=== PATIENT | female | born 1990 | race Caucasian/White ===

== ENCOUNTER → 2020-04-03 | Outpatient (CLI) | payer BC, SELFPAY ==
[~2020-04-03] MED LIST: FLUO40CA PO; TEST200I14 INJ
== END ==
LOC: M LABSMTC 11:09
PROVIDERS: ATTEND Anesthesiology
DX: Z01.812 Encounter for preprocedural laboratory examination (principal); Z20.822 Contact with and (suspected) exposure to COVID-19

== ENCOUNTER 2020-04-08 09:47 | Day surgery (SDC) | payer OTHER ==
[~2020-04-08] VITALS: Ht 180.3 cm; Wt 118.8 kg
[~2020-04-08 09:47] MED LIST changes: +HEPARIN SOD (PORCINE) 5000UNITS/ML 1ML VIAL/SYRINGE SQ ONE; +LIDOCAINE 1% MDV 20ML VIAL SQ PRN; +LR 1,000 ML IV ONE; +ceFAZolin SOD 2 GM in IV 1 EA IV ONE
[2020-04-08] MEDS ORDERED: LIDOCAINE 2% 100MG/5ML SDV (FOR ANES.) As Ordered ONE (12:28)
[2020-04-08] MEDS ORDERED: ROCURONIUM BROMIDE 50 MG/5 ML VIAL As Ordered ONE ×2 (12:28→14:20)
[2020-04-08] MEDS ORDERED: ONDANSETRON 4MG/2ML VIAL As Ordered ONE (12:28)
[2020-04-08] MEDS ORDERED: dexameTHASONE 4 MG/ML 1ML VIAL (J1100 PER 1MG) As Ordered ONE (12:28)
[2020-04-08] MEDS ORDERED: propofoL 200 MG/20 ML VIAL As Ordered ONE (12:28)
[2020-04-08] MEDS ORDERED: MIDAZOLAM INJ 2MG/2ML VIAL (J2250 PER 1MG) As Ordered ONE (12:29)
[2020-04-08] MEDS ORDERED: fentaNYL 250 MCG/5 ML INJECTION (J3010) As Ordered ONE (12:29)
[2020-04-08] MEDS ORDERED: BUPIVACAINE LIPOSOME/PF 1.3% 20ML VIAL (13.3MG/ML)(EXPAREL)(C9290 PER1MG) As Ordered ONE (13:15)
[2020-04-08] MEDS ORDERED: BACITRACIN PWD 50,000 UNITS VIAL As Ordered ONE (13:15)
[2020-04-08] MEDS ORDERED: LACRILUBE (AKWA TEARS) OPHTH OINT 3.5 GM As Ordered ONE (13:19)
[2020-04-08] MEDS ORDERED: EPINEPHrine INJ 1 MG/ML 1ML AMP As Ordered ONE (13:55)
[2020-04-08] MEDS ORDERED: LIDOCAINE 1% MDV 20ML VIAL As Ordered ONE (13:55)
[2020-04-08] MEDS ORDERED: SUGAMMADEX SODIUM 500 MG/5 ML VIAL (BRIDION) As Ordered ONE (14:49)
[2020-04-08] MEDS ORDERED: HYDROmorphone HCL 2 MG/ML 1ML VIAL (J1170) As Ordered ONE (14:49)
[2020-04-08] MEDS ORDERED: PERCOCET 5MG/325MG TAB PO PRN (17:00)
[2020-04-08] MEDS ORDERED: ONDANSETRON 4MG/2ML VIAL IV PRN ×2 (17:00→18:00)
[2020-04-08] MEDS ORDERED: ACETAMINOPHEN TAB 650MG DOSE (2X325MG) PO PRN (17:00)
--- NOTE | 2020-04-08 17:00 | POST-OPPD ---
Postoperative Procedure Note Date Of Procedure: Apr 08, 2020 PREOPERATIVE DIAGNOSIS: Gender dysphoria, bilateral breast hypertrophy. POSTOPERATIVE DIAGNOSIS: same FINDINGS: Female chest distribution. PROCEDURE: Chest masculinization procedure, bilateral subcutaneous mastectomies with free nipple graft. SURGEON: Dr Quan ANESTHESIA: General SPECIMENS: Right breast 1310gm, Left breast 1325 gm ESTIMATED BLOOD LOSS: 100 gm REPLACED: none DRAINS: 10 mm ABDULAZIZ flat COMPLICATIONS: none POSTOPERATIVE CONDITION: stable BLAIR QUAN DO Apr 08, 2020 17:00
[2020-04-08] MEDS ORDERED: oxyCODONE 5MG TAB As Ordered ONE (17:50)
[2020-04-08] MEDS ORDERED: LR 1,000 ML IV SCH (18:00)
[2020-04-08] MEDS ORDERED: METOCLOPRAMIDE INJ 10MG/2ML VIAL (J2765 PER 1) IV PRN (18:00)
[2020-04-08] MEDS ORDERED: fentaNYL 100 MCG/2 ML INJECTION (J3010) IV PRN (18:00)
[2020-04-08] MEDS ORDERED: HYDROMORPHONE HCL 0.5 MG/ 0.5 ML SYRINGE (J1170 PER 1) IV PRN (18:00)
[2020-04-08] MEDS ORDERED: oxyCODONE 5MG TAB PO PRN (18:00)
--- NOTE | 2020-04-08 18:06 | ROOPDOC ---
[facility] Report Of Operation Report of Operation Date Of Procedure: Apr 08, 2020 PREOPERATIVE DIAGNOSIS: Gender dysphoria, bilateral breast hypertrophy. POSTOPERATIVE DIAGNOSIS: same FINDINGS: Female chest distribution. PROCEDURE: Chest masculinization procedure, bilateral subcutaneous mastectomies with free nipple graft. SURGEON: Dr Valentino ANESTHESIA: General SPECIMENS: Right breast 1310gm, Left breast 1325 gm ESTIMATED BLOOD LOSS: 100 gm REPLACED: none DRAINS: 10 mm ABDULAZIZ flat COMPLICATIONS: none POSTOPERATIVE CONDITION: stable DESCRIPTION OF PROCEDURE: This is a 29-year-old transgender male who willing to have chest masculinization procedure. Patient fits the criteria for the proce dure. She has stopped testosterone March 09. Risks, benefits, and alternatives were discussed with the patient in detail, and he is ready to proceed. The day of surgery, he was marked in the upright position and informed consent was obtained. He measured 30 cm from sternal notch to nipple on both sides, IMF at 23 cm bilaterally. Patient was marked according to double incision fountain bcutaneous mastectomy. He was brought into the operating room and placed in the supine position. Preoperative antibiotics and 5000 units heparin subcutaneous were given. Sequential pneumatic stocking were placed on the lower calves. General anesthesia was induced. He was prepped and draped in the usual sterile fashion. We started our procedure on the right side. Nipple areolar complex was outlined 20 mm in diameter. Superior incision carried out followed by the inframammary incision. Started undermining the flap with thick edges from the superior incision toward the midportion of the pectoralis major then the breast was removed starting from top to the inferior incision at the inframammary line along the pectoralis fascia. Total weight on the right side is 1310 grams. Hemostasis was obtained using electrocautery. We used Exparel 6 cc for local anesthesia to infiltrate in the Pectoralis muscle. Started closing the flap with interrupted 0 Vicryl sutures. 10 mm Santos-Valdez drain was placed through the separate stab incision. Then we turn our attention to the left side. Nipple areolar complex was outlined 20 mm in diameter. Superior incision carried out followed by the inframammary incision. Started undermining the flap with thick edges from the superior incision toward the midportion of the pectoralis major then the breast was removed starting from top to the inferior incision at the inframammary line along the pectoralis fascia. Total weight on the right side is 1325 grams. Hemostasis was obtained using electrocautery. We used Exparel 6 cc for local anesthesia to infiltrate in the Pectoralis muscle. Started closing the flap with interrupted 0 Vicryl sutures. 10 mm Santos-Valdez drain was placed through the separate stab incision. Tumescent solution was infiltrated on the lateral chest bilaterally totaling 200 on each side, then the VASER liposuction was performed 2 minutes on each side followed by regular light suction to remove the rest of the fatty tissue. Total liposuction 400 mL. 50 mL of tumescent solution infiltrated middle of the chest and suction assisted lipectomy performed to smooth out the contour. Than the continued our closure of inframammary incisions with interrupted 3-0 Monocryl sutures followed by 3-0 Monocryl V lock suture. Breast tissue removed was stored on the sterile table. At this point we harvested the nipple areolar complex from each breast. Tissue was defatted and transferred to a chest as a free graft. Location of the nipple is 2 cm from inframammary line. Nipple areolar complex graft was secured in place with interrupted 4-0 and 5-0 chromic sutures. Bolster dressing was applied and secured in place with 4-0 nylon sutures. Remaining Exparel injected in the horizontal incision. Total Exparel use 20 cc. Resected tissue sent to pathology in two specimens right and left breast tissue. Dressings were applied to vertical and horizontal incision: Prineo, bulky dressing and binder. Patient was extubated in the operating room without difficulty and was transferred to the recovery room in stable condition. BLAIR VALENTINO DO Apr 08, 2020 18:06
[2020-04-08 18:30] VITALS: BP 129/78
[2020-04-08] MEDS: LR 1,000 ML IV SCH (18:35)
[2020-04-08 19:00] VITALS: BP 112/56
[2020-04-08] MEDS: ceFAZolin SOD 1 GM in D5W MINI-BAG PLUS 50 ML IV SCH (21:06)
[2020-04-08] MEDS: KETOROLAC TROMETHAMINE 10 MG TAB PO PRN (21:06)
[2020-04-08 22:00] VITALS: BP 135/72
[2020-04-09] MEDS: LR 1,000 ML IV SCH (02:39)
[2020-04-09] MEDS: ceFAZolin SOD 1 GM in D5W MINI-BAG PLUS 50 ML IV SCH (05:00)
[2020-04-09 06:00] VITALS: BP 132/71
[2020-04-09] MEDS: KETOROLAC TROMETHAMINE 10 MG TAB PO PRN (07:30)
--- NOTE | 2020-04-09 11:29 | IPNPDOC ---
Subjective General Date Seen: Apr 09, 2020 Subject Chief Complaint/History The patient is a 29-year-old female admitted with a reason for visit of Gender Identity Disorder, Breast Hypertrophy. Patient status post chest with skeletonization procedure postop day 1. Feeling well, pain controlled, tolerating regular diet, ambulating himself. Denies dizziness, shortness of breath, chest pain, headache. Current Medications Current Medications Current Medications Medications (Trade) Dose Ordered Sig/Simon Route PRN Reason Start Time Stop Time Status Last Admin Dose Admin Acetaminophen (Tylenol Tab) 650 mg Q6H PRN PO MILD PAIN (PS 1-4) 04/08/20 17:00 04/09/20 02:39 Cefazolin Sodium 1 gm/Dextrose 50 ml @ 100 mls/hr Q8H IV 04/08/20 22:00 04/09/20 05:00 Fentanyl Citrate (Sublimaze) 25 mcg Q5MP PRN IV PAIN LEVEL 5-10 04/08/20 18:00 04/08/20 19:00 DC Hydromorphone HCl (Dilaudid) 0.4 mg Q5MP PRN IV PAIN LEVEL 4-7 04/08/20 18:00 04/08/20 19:00 DC Ketorolac Tromethamine (ToRADol) 10 mg Q6HP PRN PO MODERATE PAIN (PS 5-7) 04/08/20 17:00 04/13/20 16:59 04/09/20 07:30 Lactated Ringer's 1,000 ml @ 75 mls/hr [id number] IV 04/08/20 17:00 04/09/20 02:39 Lactated Ringer's 1,000 ml @ 100 mls/hr Q10H IV 04/08/20 18:00 04/08/20 19:00 DC Lidocaine HCl (LIDOCAINE 1% MDV 20ml) 0.1 ml ONCE PRN SQ DISCOMFORT BEFORE IV START 04/08/20 06:00 Metoclopramide HCl (REGLAN INJection) 10 mg Q6HP PRN IV NAUSEA OR VOMITING 04/08/20 18:00 04/08/20 19:00 DC Ondansetron HCl (ZOFRAN INJection) 4 mg Q4H PRN IV NAUSEA OR VOMITING 04/08/20 17:00 Ondansetron HCl (ZOFRAN INJection) 4 mg Q4HP PRN IV NAUSEA OR VOMITING 04/08/20 18:00 04/08/20 19:00 DC Oxycodone HCl (Roxicodone, Oxyir) 5 mg ASDIRECTED PRN PO PAIN LEVEL 1-4 04/08/20 18:00 04/08/20 19:00 DC 04/08/20 17:50 Oxycodone/ Acetaminophen (Percocet 5mg/ 325mg Tablet) 2 tab Q4HP PRN PO PAIN LEVEL 8-10 04/08/20 17:00 04/09/20 11:03 Allergies Coded Allergies: No Known Allergies (Unverified , 03/30/20) Objective Physical Examination Examination GENERAL APPEARANCE:Patient seen, laying in bed, awake, alert, and oriented. Comfortable, in no acute distress. SKIN: Warm and moist. BREAST: Right and left soft, non-tender incisions intact. ABDULAZIZ drains: 30/48 cc/24 hr. Flaps warm, pink. Minimal ecchymosis lateral chest. NAC with bolster dressings in place. LUNGS: Clear to auscultation bilaterally. No wheezing appreciated. HEART: No chest wall abnormalities. Regular rate and rhythm with no murmurs appreciated. EXTREMITIES: No edema identified. No calf tenderness. Vital Signs Vital Signs Date Time Temp Pulse Resp B/P (MAP) Pulse Ox O2 Delivery O2 Flow Rate FiO2 04/09/20 11:03 17 04/09/20 06:00 98.8 76 132/71 (91) 98 Room Air 04/08/20 17:28 2 I&Os I&O- Last 24 Hours up to 6 AM 04/09/20 06:00 Intake Total 2250 ml Output Total 1228 ml Balance 1022 ml Impression Status post chest vascularization procedure postop day 1. Stable for discharge. Continue monitoring the drains at home. Deep compression garment in place, may reposition as needed. Pain control with Toradol. Follow-up plastic surgery in 1 week. Plan / VTE VTE Prophylaxis Ordered?: Yes BLAIR QUAN DO Apr 09, 2020 11:29
[2020-04-09] MEDS ORDERED: KETO10TAB PO (11:31)
== END 2020-04-09 11:50 | disposition home or self-care (01) ==
LOC: M SDC 09:47 → M MS5PR 18:18 → M SDC 04-09 11:50
PROVIDERS: ATTEND Plastic Surgery Surgery of the Hand
DX: F64.9 Gender identity disorder, unspecified (principal); N62 Hypertrophy of breast; K21.9 Gastro-esophageal reflux disease without esophagitis; F32.9 Major depressive disorder, single episode, unspecified; F41.9 Anxiety disorder, unspecified; Z87.891 Personal history of nicotine dependence
CPT/HCPCS: 19303; 81025; 88300; 88305; 96365; 96366; C9290; J0171; J0690; J1100; J1170; J1644; J2250; J2405; J3010